=== PATIENT | male | born 1960 | race Caucasian/White ===

== ENCOUNTER 2017-02-03 16:58 | Emergency (ER) | payer MEDICAID ==
--- NOTE | 2017-02-03 17:32 | C.PDOC ---
History Of Present Illness <Sivakumar Fontaine - Last Filed: 02/05/17 15:45> <Leora Richards - Last Filed: 02/08/17 16:18> 56 y/o M c PMHx DM, s/p cholecystectomy, vertigo p/w abdominal pain x 3 days. Pain is epigastric/LUQ, stabbing, occurring for 30 seconds at a time, intermittent, severe, causing patient to hold his breath. He has never had this pain before. It occurred 4 times on day 1, twice yesterday, 10 times today. Denies dysuria, vomiting, diarrhea, constipation. (Sivakumar Fontaine) <Sivakumar Fontaine - Last Filed: 02/05/17 15:45> <Leora Richards - Last Filed: 02/08/17 16:18> Time Seen by Provider: 02/03/17 17:28 Chief Complaint (Nursing): Abdominal Pain Past Medical History - Medical History PMH: COPD, Diabetes, Hypercholesterolemia, Sleep Apnea, TIA Surgical History: Cholecystectomy Family History: States: No Known Family Hx - Social History Hx Tobacco Use: Yes Hx Alcohol Use: No Hx Substance Use: No - Immunization History Hx Tetanus Toxoid Vaccination: Yes Hx Influenza Vaccination: No Hx Pneumococcal Vaccination: No <Sivakumar Fontaine - Last Filed: 02/05/17 15:45> Review Of Systems Except As Marked, All Systems Reviewed And Found Negative. Constitutional: Negative for: Fever Cardiovascular: Negative for: Chest Pain <Sivakumar Fontaine - Last Filed: 02/05/17 15:45> Physical Exam <Sivakumar Fontaine - Last Filed: 02/05/17 15:45> <Leora Richards - Last Filed: 02/08/17 16:18> - Physical Exam Additional Physical Exam Comments: Constitutional: No acute distress. Head: Normocephalic. Atraumatic. Eyes: PERRL. ENT: Moist mucous membranes. Neck: Supple. Cardiovascular: Regular rate. Radial pulses 2+ bilaterally. Chest: No tenderness. Respiratory: Clear to auscultation bilaterally. GI: Soft. Epigastric tenderness with guarding, difficult to reproduce. Obese. Old midline surgical scar. Back: No CVA tenderness. Musculoskeletal: No tenderness or swelling of extremities. Skin: No rash. Neurologic: Alert, no focal deficit. (Sivakumar Fontaine) ED Course And Treatment - Laboratory Results Result Diagrams: 02/03/17 18:04 02/03/17 18:04 ECG: Interpreted By Me, Viewed By Me ECG Rhythm: Sinus Rhythm (79 bpm) O2 Sat by Pulse Oximetry: 98 <Sivakumar Fontaine - Last Filed: 02/05/17 15:45> - Laboratory Results Result Diagrams: 02/03/17 18:04 02/03/17 18:04 <Leora Richards - Last Filed: 02/08/17 16:18> Medical Decision Making <Sivakumar Fontaine - Last Filed: 02/05/17 15:45> <MauriceLeora A - Last Filed: 02/08/17 16:18> Medical Decision Making: Toradol, IVF. Check labs, urine, and CT. Differential includes colitis/ileitis, pancreatitis, gastric ulcer. EKG NSR 80 bpm, no ST/T wave changes. Labs unremarkable. Pending CT. Case will be signed out to ER night team at change of shift. (Sivakumar Fontaine) Disposition - Disposition Disposition Time: 18:24 <Sivakumar Fontaine - Last Filed: 02/05/17 15:45> Counseled Patient/Family Regarding: Studies Performed, Diagnosis, Need For Followup, Rx Given - Disposition Disposition Time: 21:30 - POA Present On Arrival: None <Leora Richards - Last Filed: 02/08/17 16:18> - Disposition Referrals: Chaz Benitez MD [Non-Staff] - Disposition: HOME/ ROUTINE Condition: STABLE Additional Instructions: SEGUIMIENTO CON SPENCER MDICO EN 1-2 GRANT, Y CON SPENCER GASTROENTERLOGO DENTRO DE 1 SEMANA DEVUELVA A LA BERNADETTE DE EMERGENCIA SI LOS SNTOMA EMPEORARAN Prescriptions: Famotidine [Pepcid] 20 mg PO BID PRN #15 tab PRN Reason: abdominal Forms: [facility] (Kenyan) Print Language: LITHUANIAN - Clinical Impression Clinical Impression: Abdominal pain, LFT elevation Addendum <Sivakumar Fontaine - Last Filed: 02/05/17 15:45> <Leora Richards - Last Filed: 02/08/17 16:18> Addendum: 02/03/17 21:28 Patient reassessed, is resting comfortably, states he has no current abdominal pain. Pain began after starting a new DM medication, aloglitpin. CT scan shows small left sided calculus inside kidney, otherwise was WNL. Blood work (+ ) for mild LFT elevation, ? due to new medication. Patient instructed to follow up with PMD in 1-2 days for further eval and medication adjustment. He was also instructed to follow up with his GI specialist within 1 week. Patient understands he should return to ED if symptoms worsen. 02/03/17 21:34 Name: YULIET ODONNELL Age: 56Years M Date: 02/03/2017 SSN: [id number] : 1960 Study: CT ABDOMEN/PELVIS W Requesting Physician: Sivakumar Fontaine Images: [id number] Addl Studies: Provided Clinical History: abdominal pain CONFIDENTIALITY STATEMENT This transmission is confidential and is intended to be a privileged communication. It is intended only for the use of the addressee. Access to this message by anyone else is unauthorized. If you are not the intended recipient, any disclosure, copying, distribution or any action taken, or omitted to be taken in reliance on it is prohibited and may be unlawful. If you received this communication in error, please notify us by telephone, so that return of this document to us can be arranged. Page 1 of 2 EXAM: CT Abdomen and Pelvis With Intravenous Contrast CLINICAL HISTORY: 56 years old, male; Pain; Abdominal pain; Localized; Left TECHNIQUE: Axial computed tomography images of the abdomen and pelvis with intravenous contrast. All CT scans at this facility use one or more dose reduction techniques, viz.: automated exposure control; ma/kV adjustment per patient size (including targeted exams where dose is matched to indication; i.e. head); or iterative reconstruction technique. Coronal and sagittal reformatted images were created and reviewed. CONTRAST: 100 mL of visipaque administered intravenously. COMPARISON: No relevant prior studies available. FINDINGS: Limitations: Motion artifact - mild. Lower thorax: Minimal atelectasis. ABDOMEN: Liver: Fatty infiltration. Gallbladder and bile ducts: Cholecystectomy. No ductal dilation. Pancreas: Small calcification about uncinate process. No ductal dilation. Spleen: No splenomegaly. [facility] ([facility]3] Radiology [facility] Final Radiology Report [id number] Name: YULIET ODONNELL Age: 56Years M Date: 02/03/2017 SSN: [id number] : 1960 Study: CT ABDOMEN/PELVIS W Requesting Physician: Sivakumar Fontaine Images: [id number] Addl Studies: Provided Clinical History: abdominal pain CONFIDENTIALITY STATEMENT This transmission is confidential and is intended to be a privileged communication. It is intended only for the use of the addressee. Access to this message by anyone else is unauthorized. If you are not the intended recipient, any disclosure, copying, distribution or any action taken, or omitted to be taken in reliance on it is prohibited and may be unlawful. If you received this communication in error, please notify us by telephone, so that return of this document to us can be arranged. Page 2 of 2 Adrenals: No mass. Kidneys and ureters: Punctate calculus within LEFT kidney. No hydronephrosis. Stomach and bowel: No definite mural thickening. No obstruction. Appendix: Normal caliber. No inflammation. PELVIS: Bladder: Unremarkable. Reproductive: Mildly enlarged prostate. ABDOMEN and PELVIS: Intraperitoneal space: No significant fluid collection. No free air. Bones/joints: Mild degenerative changes of spine. No acute fracture. Soft tissues: Small ventral hernia containing fat. Tiny umbilical hernia containing fat. Vasculature: Unremarkable. No aneurysm. Lymph nodes: No pathologically enlarged lymph nodes. IMPRESSION: 1. Nonobstructing renal calculus. 2. Incidental/non-acute findings are described above. Thank you for allowing us to participate in the care of your patient. Dictated and Authenticated by: Erik Sanon MD 02/03/2017 9:14 PM Eastern Time ([place] & [place]) (Leora Richards
[2017-02-03] MEDS ORDERED: Sodium Chloride 0.9% 1,000 ML IV STA (17:53)
[2017-02-03 18:07] LABS: BASO # 0.1 K/uL (0.0-0.2); BASO % 0.5 % (0.0-2.0); EOS # 0.2 K/uL (0.0-0.7); EOS % 2.2 % (0.0-4.0); HEMATOCRIT 46.6 % (35.0-51.0); LYMPH # 2.7 K/uL (1.0-4.3); LYMPH % 28.8 % (20.0-40.0); MEAN CORPUSCULAR HEMOGLOBIN 26.7 pg (27.0-31.0); MEAN CORPUSCULAR HGB CONC 32.9 g/dL (33.0-37.0); MEAN PLATELET VOLUME 8.1 fL (7.2-11.7); MONO # 0.7 K/uL (0.0-0.8); MONO % 7.5 % (0.0-10.0); RED CELL DISTRIBUTION WIDTH 14.3 % (11.5-14.5); WHITE BLOOD COUNT 9.4 K/uL (4.8-10.8)
[2017-02-03 18:13] LABS: RBC URINE < 1 /hpf (0-3); URINE BILIRUBIN NEGATIVE (NEGATIVE); URINE BLOOD NEGATIVE (NEGATIVE); URINE COLOR Yellow (YELLOW); URINE GLUCOSE (UA) NORMAL (Normal); URINE KETONE NEGATIVE (NEGATIVE); URINE LEUKOCYTE ESTERASE NEG Leu/uL (Negative); URINE PROTEIN NEGATIVE (NEGATIVE); URINE UROBILINOGEN NORMAL mg/dL (0.2-1.0); WBC URINE < 1 /hpf (0-5)
[2017-02-03 18:15] LABS: CHLORIDE 102 mmol/L (98-107)
[2017-02-03 18:16] LABS: POTASSIUM 3.8 mmol/L (3.6-5.2); SODIUM 143 mmol/L (132-148)
[2017-02-03 18:18] LABS: ALB/GLOB RATIO 1.2 (1.0-2.1); ALKALINE PHOSPHATASE 131 U/L (38-126); AMYLASE 52 U/L (30-110); AST/SGOT 63 U/L (17-59); BILIRUBIN,TOTAL 0.6 mg/dL (0.2-1.3); BLOOD UREA NITROGEN 11 mg/dL (9-20); CARBON DIOXIDE 26 mmol/L (22-30); GFR AFRICAN-AMERICAN > 60; GLUCOSE,RANDOM 109 mg/dL (75-110)
[2017-02-03 18:19] LABS: ALT/SGPT 124 U/L (21-72); CALCIUM 9.2 mg/dl (8.6-10.4)
[2017-02-03] MEDS ORDERED: Iodixanol 320 MG/ML 100 ML BOTTLE IV ONE (19:30)
--- NOTE | 2017-02-03 21:14 | CT ---
EXAM: CT Abdomen and Pelvis With Intravenous Contrast CLINICAL HISTORY: 56 years old, male; Pain; Abdominal pain; Localized; Left TECHNIQUE: Axial computed tomography images of the abdomen and pelvis with intravenous contrast. All CT scans at this facility use one or more dose reduction techniques, viz.: automated exposure control; ma/kV adjustment per patient size (including targeted exams where dose is matched to indication; i.e. head); or iterative reconstruction technique. Coronal and sagittal reformatted images were created and reviewed. CONTRAST: 100 mL of visipaque administered intravenously. COMPARISON: No relevant prior studies available. FINDINGS: Limitations: Motion artifact - mild. Lower thorax: Minimal atelectasis. ABDOMEN: Liver: Fatty infiltration. Gallbladder and bile ducts: Cholecystectomy. No ductal dilation. Pancreas: Small calcification about uncinate process. No ductal dilation. Spleen: No splenomegaly. Adrenals: No mass. Kidneys and ureters: Punctate calculus within LEFT kidney. No hydronephrosis. Stomach and bowel: No definite mural thickening. No obstruction. Appendix: Normal caliber. No inflammation. PELVIS: Bladder: Unremarkable. Reproductive: Mildly enlarged prostate. ABDOMEN and PELVIS: Intraperitoneal space: No significant fluid collection. No free air. Bones/joints: Mild degenerative changes of spine. No acute fracture. Soft tissues: Small ventral hernia containing fat. Tiny umbilical hernia containing fat. Vasculature: Unremarkable. No aneurysm. Lymph nodes: No pathologically enlarged lymph nodes. IMPRESSION: 1. Nonobstructing renal calculus. 2. Incidental/non-acute findings are described above.
[2017-02-03 21:52] VITALS: BP 136/89; PULSE 73; RESP 19; TEMP 97.9
[2017-02-05 15:46] VITALS: O2SAT 98
--- NOTE | 2017-02-06 17:44 | CARD ---
APPROVED REPORT EKG Measurement Heart [id number] ID [id number] <Conclusion> Poor data quality, interpretation may be adversely affected Normal sinus rhythm Normal ECG
== END 2017-02-03 21:53 | disposition home or self-care (01) ==
LOC: C.ER 16:58
DX: R74.8 Abnormal levels of other serum enzymes (principal); R10.9 Unspecified abdominal pain; E78.00 Pure hypercholesterolemia, unspecified; Z90.49 Acquired absence of other specified parts of digestive tract
CPT/HCPCS: 74177; 80053; 81001; 82150; 83690; 85025; 87086; 96374; 99285; J1885; J7040

== ENCOUNTER 2017-03-07 06:41 | Day surgery (SDC) | payer MEDICAID ==
[2017-03-07 07:10] VITALS: BMI 39.5
[2017-03-07] MEDS ORDERED: Midazolam 2 MG/2 ML VIAL ONE (08:39)
[2017-03-07] MEDS ORDERED: Propofol 10 mg/ml Inj (20 ML) ONE (08:40)
[2017-03-07] MEDS ORDERED: Lactated Ringer's 1,000 ML IV ONE (08:40)
[2017-03-07 10:12] VITALS: O2SAT 97
[2017-03-07 10:26] VITALS: BP 112/74; PULSE 60; RESP 12; TEMP 97
== END 2017-03-07 10:20 | disposition home or self-care (01) ==
LOC: C.ENDO 06:41
PROVIDERS: ATTEND Internal Medicine Gastroenterology
DX: Z12.11 Encounter for screening for malignant neoplasm of colon (principal); K64.0 First degree hemorrhoids; Z86.010 Personal history of colon polyps
CPT/HCPCS: 45378; 82948; J2250; J2704; J7120

== ENCOUNTER 2017-03-21 06:59 | Day surgery (SDC) | payer MEDICAID ==
[2017-03-21] MEDS ORDERED: Lactated Ringer's 500 ML IV ONE (08:26)
[2017-03-21] MEDS ORDERED: Propofol 10 mg/ml Inj (20 ML) ONE (08:37)
[2017-03-21] MEDS ORDERED: Lidocaine Hydrochloride 5 ML INJ ONE (08:42)
[2017-03-21] MEDS ORDERED: Lactated Ringer's 500 ML IV SCH (08:45)
[2017-03-21 10:39] VITALS: O2SAT 99
[2017-03-21 10:45] VITALS: BP 109/77; PULSE 71; RESP 18; TEMP 98.1
== END 2017-03-21 10:05 | disposition home or self-care (01) ==
LOC: C.ENDO 06:59
PROVIDERS: ATTEND Internal Medicine Gastroenterology
DX: K29.70 Gastritis, unspecified, without bleeding (principal)
CPT/HCPCS: 43239; 82948; 88305; J2704; J7120

== ENCOUNTER 2017-06-03 20:36 | Emergency (ER) | payer MEDICAID ==
[2017-06-03 20:37] VITALS: BMI 39.5
--- NOTE | 2017-06-03 20:58 | C.PDOC ---
History Of Present Illness Patient presents to ED by EMS after he tripped and fell off some steps taking out the garbage 1 hour [employer], at home. Patient complains of pain in the right flank, right elbow, and left leg. Patient states he had few drinks tonight but speaks in complete sentences and remembers the event. Denies LOC, nausea, vomiting, head injury. - HPI Time Seen by Provider: 06/03/17 20:58 Chief Complaint (Nursing): Trauma History Per: EMS History/Exam Limitations: no limitations Onset/Duration Of Symptoms: Hrs (1) Injury Occurred (Timing): Hours Ago: (1) Description Of Injury (Context): Fell down steps Location Of Injury: Right: Elbow, Left: Leg Severity: Moderate Pain Scale Rating Of: 4 Recent travel outside of the [place]: No Additional History Per: Family - Fall Fall:Prior To Injury: Tripped (down steps) Past Medical History Reviewed: Historical Data, Nursing Documentation, Vital Signs Vital Signs: Last Vital Signs Temp 98 F 06/03/17 20:47 Pulse 86 06/03/17 20:47 Resp 16 06/03/17 20:47 BP 143/75 06/03/17 20:47 Pulse Ox 96 06/03/17 21:50 - Medical History PMH: Arthritis (right knee), Colonic Polyps, Diabetes, HTN, Hypercholesterolemia , Kidney Stones, Chronic Kidney Disease, Sleep Apnea Surgical History: Cholecystectomy Family History: States: No Known Family Hx - Social History Hx Tobacco Use: Yes Hx Alcohol Use: Yes Hx Substance Use: No - Immunization History Hx Tetanus Toxoid Vaccination: No Hx Influenza Vaccination: No Hx Pneumococcal Vaccination: No Review Of Systems Constitutional: Negative for: Fever, Chills Eyes: Negative for: Vision Change Cardiovascular: Negative for: Chest Pain Respiratory: Negative for: Shortness of Breath Gastrointestinal: Negative for: Nausea, Vomiting, Abdominal Pain Genitourinary: Negative for: Hematuria Musculoskeletal: Positive for: Arm Pain, Back Pain (Right flank), Leg Pain (Left ) Skin: Positive for: Lesions, Bruising (left leg) Neurological: Positive for: Other (no LOC). Negative for: Weakness, Change in Speech, Confusion, Altered Mental Status Psych: Negative for: Depression Physical Exam - Physical Exam Appears: Non-toxic, Other (Awake, Alert) Skin: Warm, Dry, Other (abrasion r back , r elvboe, lefy leg and foot) Head: Normacephalic Eye(s): bilateral: Normal Inspection, PERRL, EOMI Ear(s): Bilateral: Normal Oral Mucosa: Moist Throat: No Erythema Neck: No Midline Cervical Tenderness, No Paracervical Tenderness, Supple Chest: Symmetrical, No Tenderness, Other (Small abrasion to the left ) Cardiovascular: Rhythm Regular Respiratory: No Rales, No Rhonchi, No Wheezing Gastrointestinal/Abdominal: Soft, No Tenderness, Hernia (Large umbilical reducible, chronic ) Back: No CVA Tenderness, No Vertebral Tenderness, No Paraspinal Tenderness, Other (Parascapular abrasion) Extremity: No Deformity, Other (Abrasion over medial aspect of right elbow, and 3x4cm abrasion over mid tibia with tenderness and edema ) Extremity: Bilateral: Normal ROM Pulses: Left Dorsalis Pedis: Normal, Right Dorsalis Pedis: Normal Neurological/Psych: Oriented x3, Normal Speech, Normal Cognition Gait: With Assistance (due to alcohol use) ED Course And Treatment O2 Sat by Pulse Oximetry: 96 (Room air) Pulse Ox Interpretation: Normal - Other Rad tib/fib X-Ray: Interpreted by Me, Viewed By Me Interpretation: no fracture or dislocation Progress Note: Administered Toradol and tetanus vaccination. Ordered x-ray. 10: 13 PM Pt ambulating without assistance. Stable. OK to dc Reevaluation Time: 22:14 Reassessment Condition: Improved Disposition Counseled Patient/Family Regarding: Studies Performed, Diagnosis, Need For Followup - Disposition Referrals: Chaz Benitez MD [Non-Staff] - Disposition: HOME/ ROUTINE Disposition Time: 20:58 Condition: FAIR Additional Instructions: Please return if symptoms recur Instructions: Fall Prevention (DC), Abrasion (ED) Forms: Online-[employer] (Lao) Print Language: SERBIAN - Clinical Impression Clinical Impression: Fall, Abrasion, Contusion of leg, left - Scribe Statement The provider has reviewed the documentation as recorded by the Raúl Carroll All medical record entries made by the Abbeyibjd were at my direction and personally dictated by me. I have reviewed the chart and agree that the record accurately reflects my personal performance of the history, physical exam, medical decision making, and the department course for this patient. I have also personally directed, reviewed, and agree with the discharge instructions and disposition.
[2017-06-03 21:56] LABS: RBC URINE < 1 /hpf (0-3); URINE BILIRUBIN NEGATIVE (NEGATIVE); URINE BLOOD NEGATIVE (NEGATIVE); URINE COLOR Straw (YELLOW); URINE GLUCOSE (UA) 3+ mg/dL (Normal); URINE KETONE NEGATIVE (NEGATIVE); URINE LEUKOCYTE ESTERASE NEG Leu/uL (Negative); URINE PROTEIN NEGATIVE (NEGATIVE); URINE UROBILINOGEN NORMAL mg/dL (0.2-1.0); WBC URINE 1 /hpf (0-5)
[2017-06-03 22:22] VITALS: BP 120/78; PULSE 80; RESP 14; TEMP 97.8; O2SAT 98
--- NOTE | 2017-06-04 09:44 | RAD ---
PROCEDURE: Radiographs of the left tibia and fibula. HISTORY: fall COMPARISON: None available. TECHNIQUE: Frontal and lateral views obtained. FINDINGS: BONES: There is no acute displaced fracture or bone destruction. Bone alignment is normal. JOINT SPACES: Unremarkable. OTHER FINDINGS: None. IMPRESSION: No acute fracture or dislocation.
== END 2017-06-03 22:22 | disposition home or self-care (01) ==
LOC: C.ER 20:36
DX: S50.311A Abrasion of right elbow, initial encounter (principal); S80.811A Abrasion, right lower leg, initial encounter; S80.12XA Contusion of left lower leg, initial encounter; W10.9XXA Fall (on) (from) unspecified stairs and steps, initial encounter
CPT/HCPCS: 73590; 81001; 90471; 90715; 96372; 99283; J1885

== ENCOUNTER 2017-12-30 01:48 | Emergency (ER) | payer MEDICAID ==
[2017-12-30 01:48] VITALS: BMI 39.5
[2017-12-30 02:07] VITALS: TEMP 98.1
[2017-12-30] MEDS ORDERED: Sodium Chloride 0.9% 1,000 ML IV ONE (02:11)
--- NOTE | 2017-12-30 02:17 | C.PDOC ---
History Of Present Illness 57 year old male with PMHx of HLD and DM presents is brought to the ED by his for evaluation. Patient reports he was drinking liquor today when he started vomiting and feel weaker. Patient denies fever, chills, nausea, diarrhea , back pain, weakness, numbness. Time Seen by Provider: 12/30/17 01:50 Chief Complaint (Nursing): GI Problem History Per: Patient History/Exam Limitations: no limitations Onset/Duration Of Symptoms: Hrs Current Symptoms Are (Timing): Still Present Location Of Pain/Discomfort: Diffuse Radiation Of Pain To:: None Quality Of Discomfort: "Pain" Associated Symptoms: Vomiting. denies: Nausea, Diarrhea, Urinary Symptoms Exacerbating Factors: None Alleviating Factors: None Recent travel outside of the [place]: No Additional History Per: Patient Past Medical History Reviewed: Historical Data, Nursing Documentation, Vital Signs Vital Signs: Last Vital Signs Temp 98.1 F 12/30/17 02:00 Pulse 87 12/30/17 05:58 Resp 14 12/30/17 05:58 BP 124/74 12/30/17 05:58 Pulse Ox 100 12/30/17 05:58 - Medical History PMH: Arthritis (right knee), Colonic Polyps, Diabetes, HTN, Hypercholesterolemia , Kidney Stones, Chronic Kidney Disease, Sleep Apnea Surgical History: Cholecystectomy Family History: States: Unknown Family Hx - Social History Hx Tobacco Use: Yes Hx Alcohol Use: Yes Hx Substance Use: No - Immunization History Hx Tetanus Toxoid Vaccination: No Hx Influenza Vaccination: No Hx Pneumococcal Vaccination: No Review Of Systems Except As Marked, All Systems Reviewed And Found Negative. Gastrointestinal: Positive for: Vomiting, Abdominal Pain Physical Exam - Physical Exam Appears: Non-toxic, No Acute Distress, Other (morbidly obese) Skin: Normal Color, Warm, Dry Head: Atraumatic, Normacephalic Eye(s): bilateral: Normal Inspection Oral Mucosa: Moist Neck: Normal ROM, Supple Chest: Symmetrical Cardiovascular: Rhythm Regular Respiratory: Normal Breath Sounds, No Rales, No Rhonchi, No Wheezing Gastrointestinal/Abdominal: Soft, No Tenderness, No Guarding, No Rebound, Other (obese) Extremity: Normal ROM, No Tenderness, No Swelling Neurological/Psych: Oriented x3, Normal Speech Gait: Steady ED Course And Treatment - Laboratory Results Result Diagrams: 12/30/17 02:55 12/30/17 02:55 O2 Sat by Pulse Oximetry: 99 (ON RA) Pulse Ox Interpretation: Normal Medical Decision Making Medical Decision Making: ro metabolic infectious dehydration pancreatitis etioology Plan: * EKG * Labs * Protonix 40 mg IVP * IV fluids * Zofran 4 mg IVP * UA pt reassesed sleepgin in nad. abd soft no ttp no cp. labs neg stable for dc. bedside will take pt home. Disposition - Disposition Referrals: Itz Jenkins MD [Staff Provider] - Chaz Benitez MD [Primary Care Provider] - Disposition: HOME/ ROUTINE Disposition Time: 06:00 Condition: STABLE Additional Instructions: follow up with specialist. return to er with worsening symptoms or concerns. Instructions: Acute Abdomen (Belly Pain), Nausea and Vomiting, Adult, Alcohol Abuse and Alcoholism (DC) Forms: [employer] Connect (Monegasque) - Clinical Impression Clinical Impression: Vomiting - Scribe Statement The provider has reviewed the documentation as recorded by the Scribe Brandan Serrano All medical record entries made by the Scribe were at my direction and personally dictated by me. I have reviewed the chart and agree that the record accurately reflects my personal performance of the history, physical exam, medical decision making, and the department course for this patient. I have also personally directed, reviewed, and agree with the discharge instructions and disposition.
[2017-12-30 03:01] LABS: BASO % 0.2 % (0.0-2.0); EOS # 0.1 K/uL (0.0-0.7); EOS % 0.6 % (0.0-4.0); HEMOGLOBIN 15.8 g/dL (12.0-18.0); LYMPH # 1.7 K/uL (1.0-4.3); LYMPH % 18.4 % (20.0-40.0); MEAN CELL VOLUME 81.1 fL (80.0-94.0); MEAN CORPUSCULAR HEMOGLOBIN 26.9 pg (27.0-31.0); MEAN CORPUSCULAR HGB CONC 33.2 g/dL (33.0-37.0); MONO # 0.4 K/uL (0.0-0.8); MONO % 4.3 % (0.0-10.0); NEUT # 7.1 K/uL (1.8-7.0); NEUT % 76.5 % (50.0-75.0); RBC 5.87 Mil/uL (4.40-5.90); RED CELL DISTRIBUTION WIDTH 14.9 % (11.5-14.5); WHITE BLOOD COUNT 9.3 K/uL (4.8-10.8)
[2017-12-30 03:10] LABS: INR 1.1; PROTHROMBIN TIME 12.4 SECONDS (9.7-12.2)
[2017-12-30 03:11] LABS: ALB/GLOB RATIO 1.7 (1.0-2.1); ALBUMIN 4.7 g/dL (3.5-5.0); ALT/SGPT 52 U/L (21-72); AST/SGOT 34 U/L (17-59); BLOOD UREA NITROGEN 13 mg/dL (9-20); CALCIUM 9.2 mg/dl (8.6-10.4); GFR AFRICAN-AMERICAN > 60; GFR NON-AFRICAN AMERICAN > 60; LIPASE 98 U/L (23-300)
[2017-12-30 04:45] LABS: SQUAMOUS EPITHIAL < 1 /hpf (0-5); URINE BILIRUBIN NEGATIVE (NEGATIVE); URINE BLOOD NEGATIVE (NEGATIVE); URINE CLARITY Clear (Clear); URINE COLOR Yellow (YELLOW); URINE GLUCOSE (UA) 3+ mg/dL (Normal); URINE LEUKOCYTE ESTERASE NEG Leu/uL (Negative); URINE PROTEIN NEGATIVE (NEGATIVE); URINE UROBILINOGEN NORMAL mg/dL (0.2-1.0)
[2017-12-30 05:59] VITALS: BP 124/74; PULSE 87; RESP 14
[2017-12-30 06:02] VITALS: O2SAT 99
== END 2017-12-30 06:00 | disposition home or self-care (01) ==
LOC: SUPCPDRO 01:48 → C.ER 01:48
DX: R11.10 Vomiting, unspecified (principal); E78.00 Pure hypercholesterolemia, unspecified; I12.9 Hypertensive chronic kidney disease with stage 1 through stage 4 chronic kidney disease, or unspecified chronic kidney disease; N18.9 Chronic kidney disease, unspecified; Z72.0 Tobacco use

== ENCOUNTER 2018-10-25 15:49 | Emergency (ER) | payer MEDICAID ==
[2018-10-25 15:57] VITALS: BMI 39.4
[2018-10-25 16:02] VITALS: RESP 20
--- NOTE | 2018-10-25 18:01 | CT ---
Date of service: 10/25/2018 PROCEDURE: CT HEAD WITHOUT CONTRAST. HISTORY: dizziness COMPARISON: 08/28/2014. TECHNIQUE: Axial computed tomography images were obtained through the head/brain without intravenous contrast. Supplemental Coronal and Sagittal projections created and reviewed. Radiation dose: Total exam DLP = 1205.07 mGy-cm. This CT exam was performed using one or more of the following dose reduction techniques: Automated exposure control, adjustment of the mA and/or kV according to patient size, and/or use of iterative reconstruction technique. FINDINGS: HEMORRHAGE: No intracranial hemorrhage. BRAIN: No mass effect or edema. Cortical atrophy and chronic microvascular ischemic change. VENTRICLES: Unremarkable. No hydrocephalus. CALVARIUM: Unremarkable. PARANASAL SINUSES: Unremarkable as visualized. No significant inflammatory changes. MASTOID AIR CELLS: Unremarkable as visualized. No inflammatory changes. OTHER FINDINGS: None. IMPRESSION: No acute intracranial abnormalities. No significant findings to account for the clinical presentation. No significant interval change compared to the prior examination(s).
--- NOTE | 2018-10-25 18:21 | C.PDOC ---
History Of Present Illness 58 y/o male presents to ED complaining of dizziness for the past 10 days, associated with body weakness and neck pain. Patient states he went to see his doctor who gave him medications without any relief. He denies chest pain, fever, abdominal pain, nausea, or vomiting. Reports that he had diarrhea yesterday. Time Seen by Provider: 10/25/18 16:19 Chief Complaint (Nursing): Dizziness/Lightheaded History Per: Patient History/Exam Limitations: no limitations Onset/Duration Of Symptoms: Days Current Symptoms Are (Timing): Still Present Past Medical History Reviewed: Historical Data, Nursing Documentation, Vital Signs Vital Signs: Last Vital Signs Temp 99 F 10/25/18 15:58 Pulse 83 10/25/18 15:58 Resp 20 10/25/18 15:58 BP 147/88 10/25/18 15:58 Pulse Ox 97 10/25/18 15:58 Primary Care Provider: Chaz Pepe - Medical History PMH: Arthritis (right knee), Colonic Polyps, Diabetes, HTN, Hypercholesterolemia, Kidney Stones, Chronic Kidney Disease, Sleep Apnea Surgical History: Cholecystectomy Family History: States: No Known Family Hx - Social History Hx Tobacco Use: Yes Hx Alcohol Use: Yes Hx Substance Use: No - Immunization History Hx Tetanus Toxoid Vaccination: No Hx Influenza Vaccination: No Hx Pneumococcal Vaccination: No Review Of Systems Except As Marked, All Systems Reviewed And Found Negative. Constitutional: Positive for: Weakness. Negative for: Fever, Chills Cardiovascular: Negative for: Chest Pain Respiratory: Negative for: Shortness of Breath Gastrointestinal: Positive for: Diarrhea. Negative for: Nausea, Vomiting, Abdominal Pain Musculoskeletal: Positive for: Neck Pain Neurological: Positive for: Dizziness Physical Exam - Physical Exam Appears: Non-toxic, No Acute Distress Skin: Warm, Dry Head: Normacephalic Eye(s): bilateral: Normal Inspection (no nystagmus) Oral Mucosa: Moist Neck: Supple Cardiovascular: Rhythm Regular, No Murmur Respiratory: Normal Breath Sounds, No Rales, No Rhonchi, No Wheezing Gastrointestinal/Abdominal: Soft, No Tenderness Extremity: Bilateral: Atraumatic, Normal ROM Neurological/Psych: Oriented x3, Normal Speech, Normal Motor, Normal Sensation, Other (no pronator drift) ED Course And Treatment - Laboratory Results Result Diagrams: 10/25/18 18:18 10/25/18 18:18 O2 Sat by Pulse Oximetry: 97 (RA) Pulse Ox Interpretation: Normal - Other Rad CXR X-Ray: Read By Radiologist Interpretation: FINDINGS: LUNGS: Clear. PLEURA: No pneumothorax or pleural fluid seen. CARDIOVASCULAR: No aortic atherosclerotic calcification present. Normal. OSSEOUS STRUCTURES: No significant abnormalities. VISUALIZED UPPER ABDOMEN: Normal. OTHER FINDINGS: None. IMPRESSION: No active disease.No significant interval change compared to the prior examination(s). - CT Scan/US head CT Other Rad Studies (CT/US): Read By Radiologist, Radiology Report Reviewed CT/US Interpretation: FINDINGS: HEMORRHAGE: No intracranial hemorrhage. BRAIN: No mass effect or edema. Cortical atrophy and chronic microvascular ischemic change. VENTRICLES: Unremarkable. No hydrocephalus. CALVARIUM: Unremarkable. PARANASAL SINUSES: Unremarkable as visualized. No significant inflammatory changes. MASTOID AIR CELLS: Unremarkable as visualized. No inflammatory changes. OTHER FINDINGS: None. IMPRESSION: No acute intracranial abnormalities. No significant findings to account for the clinical presentation. No significant interval change compared to the prior examination(s). Medical Decision Making Medical Decision Making: Plan: --Head CT --Labs --Chest XR --UA Patient offered admission but refused and wants to go home. Patient will be discharged home. Disposition Counseled Patient/Family Regarding: Studies Performed, Diagnosis, Need For Followup - Disposition Referrals: Chaz Pepe MD [Non-Staff] - Disposition: HOME/ ROUTINE Disposition Time: 19:27 Condition: STABLE Instructions: Dizziness, Nonvertigo, (DC) Forms: Gen Discharge Inst Cuban, [employer] (Cuban) Print Language: SINGAPOREAN - POA Present On Arrival: None - Clinical Impression Clinical Impression: Dizziness - Scribe Statement The provider has reviewed the documentation as recorded by the Raúl Shen Provider Attestation: All medical record entries made by the Raúl were at my direction and perso nara dictated by me. I have reviewed the chart and agree that the record accurately reflects my personal performance of the history, physical exam, medical decision making, and the department course for this patient. I have also personally directed, reviewed, and agree with the discharge instructions and disposition.
[2018-10-25 18:26] LABS: BASO % 0.3 % (0.0-2.0); EOS # 0.2 K/uL (0.0-0.7); EOS % 1.9 % (0.0-4.0); HEMOGLOBIN 16.2 g/dL (12.0-18.0); LYMPH # 2.6 K/uL (1.0-4.3); LYMPH % 28.6 % (20.0-40.0); MEAN CELL VOLUME 78.5 fL (80.0-94.0); MEAN CORPUSCULAR HEMOGLOBIN 25.9 pg (27.0-31.0); MEAN PLATELET VOLUME 7.7 fL (7.2-11.7); MONO # 0.6 K/uL (0.0-0.8); MONO % 6.6 % (0.0-10.0); NEUT # 5.6 K/uL (1.8-7.0); NEUT % 62.6 % (50.0-75.0); RBC 6.25 Mil/uL (4.40-5.90); RED CELL DISTRIBUTION WIDTH 16.3 % (11.5-14.5)
--- NOTE | 2018-10-25 18:40 | RAD ---
Date of service: 10/25/2018 PROCEDURE: CHEST RADIOGRAPH, 1 VIEW HISTORY: dizziness COMPARISON: 08/15/2014. FINDINGS: LUNGS: Clear. PLEURA: No pneumothorax or pleural fluid seen. CARDIOVASCULAR: No aortic atherosclerotic calcification present. Normal. OSSEOUS STRUCTURES: No significant abnormalities. VISUALIZED UPPER ABDOMEN: Normal. OTHER FINDINGS: None. IMPRESSION: No active disease.No significant interval change compared to the prior examination(s).
[2018-10-25 18:47] LABS: ALB/GLOB RATIO 1.4 (1.0-2.1); ALBUMIN 4.2 g/dL (3.5-5.0); ALT/SGPT 43 U/L (21-72); AST/SGOT 33 U/L (17-59); BLOOD UREA NITROGEN 13 mg/dL (9-20); CALCIUM 9.6 mg/dl (8.6-10.4); GFR NON-AFRICAN AMERICAN > 60
[2018-10-25 19:04] LABS: URINE BILIRUBIN NEGATIVE (NEGATIVE); URINE BLOOD NEGATIVE (NEGATIVE); URINE CLARITY Clear (Clear); URINE COLOR Yellow (YELLOW); URINE GLUCOSE (UA) 2+ mg/dL (Normal); URINE LEUKOCYTE ESTERASE NEG Leu/uL (Negative); URINE PROTEIN NEGATIVE (NEGATIVE); URINE UROBILINOGEN NORMAL mg/dL (0.2-1.0)
[2018-10-25 19:17] LABS: BARBITURATES, UR NEGATIVE (NEGATIVE); BENZODIAZEPINES, UR NEGATIVE (NEGATIVE); OPIATES, UR NEGATIVE (NEGATIVE); PHENCYCLIDINE, UR NEGATIVE (NEGATIVE)
[2018-10-25 19:50] VITALS: BP 111/77; PULSE 77; TEMP 99.3; O2SAT 95
== END 2018-10-25 19:50 | disposition home or self-care (01) ==
LOC: C.ER 15:49
DX: R42 Dizziness and giddiness (principal)